=== PATIENT | male | born 1945 | race Caucasian/White ===

== ENCOUNTER 2017-11-03 10:17 | Day surgery (SDC) | payer OTHER ==
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
--- NOTE | 2017-11-02 22:05 | PDHPUP ---
History & Physical Update H&P update statement: This history and physical update is based on an assessment of the patient which was completed after admission or registration (within 24 hours), but prior to the surgery/procedure. H&P update: H&P reviewed & patient examined, no change in patient's condition since H&P completed
[~2017-11-03 10:17] MED LIST: ACETAMINOPHEN 500 MG TAB PO ONE; CLINDAMYCIN 900 MG/DEXTROSE 50 ML IV ONE; PREGABALIN 150 MG CAP PO ONE; ROPIVACAINE 0.2% 80 MG, EPINEPHrine 0.2 MG, KETOROLAC TROMETHAMINE 30 MG, morphINE 10 M... IU ONE; TRANEXAMIC ACID 3,000 MG in NS (SYRINGE) 50 ML IRR ONE
[2017-11-03] MEDS ORDERED: LR 1,000 ML IV ONE (10:32)
[2017-11-03] MEDS ORDERED: LIDOCAINE 1% 2 ML INJ ID PRN (10:32)
[2017-11-03] MEDS ORDERED: CLINDAMYCIN 900 MG/DEXTROSE/50 ML BAG IV ONE (10:48)
[2017-11-03] MEDS ORDERED: ACETAMINOPHEN 500 MG TAB ONE (10:49)
[2017-11-03] MEDS ORDERED: PREGABALIN 150 MG CAP ONE (10:50)
[2017-11-03] MEDS ORDERED: BUPIVACAINE/EPI 0.5% 30 ML SDV ONE (11:54)
[2017-11-03] MEDS ORDERED: POLYMYXIN B SULFATE 500,000 UNIT/10 ML SYR IRR ONE (11:54)
[2017-11-03] MEDS ORDERED: BACITRACIN 50,000 UNITS/10 ML SYR IRR ONE (11:55)
--- NOTE | 2017-11-03 12:28 | PDANEPAE ---
ANE History of Present Illness 72 year old male for ORIF of previously surgically repaired clavicle (removal of hardware + ORIF). ANE Past Medical History - Cardiovascular History Hx Hypertension: No Hx Arrhythmias: Yes Hx Chest Pain: No Hx Coronary Artery / Peripheral Vascular Disease: No Hx CHF / Valvular Disease: No Hx Palpitations: No Cardiovascular History Comment: Atrial Fibrillation - Pulmonary History Hx COPD: No Hx Asthma/Reactive Airway Disease: No Hx Recent Upper Respiratory Infection: Yes Hx Oxygen in Use at Home: No Hx Sleep Apnea: No Sleep Apnea Screening Result - Last Documented: Positive Pulmonary History Comment: URI 09/2017 TREATED WITH ANTIBIOTICS AND TAMIFLU. EXERCISE INDUCED ASTHMA. NO USE OF INHALER OVER PAST 5 YEARS. PNEUMONIA AND SEPSIS 2012 - Neurologic History Hx Cerebrovascular Accident: No Hx Seizures: No Hx Dementia: No - Endocrine History Hx Diabetes: No Hypothyroid: No Hyperthyroid: No Obesity: no - Renal History Hx Renal Disorders: Yes Renal History Comment: BPH - Liver History Hx Hepatic Disorders: No - Neurological & Psychiatric Hx Hx Neurological and Psychiatric Disorders: No - Cancer History Hx Cancer: No - Congenital Disorder History Hx Congenital Disorders: No - GI History Hx Gastrointestinal Disorders: No - Other Health History Other Health History: GLAUCOMA - Chronic Pain History Chronic Pain: No - Surgical History Prior Surgeries: ORIF LT COLLAR BONE 2014. APPY. TONSILLECTOMY. LT HAND ORIF WITH POST REMVL. LT THUMB TENDON REPAIR ANE Review of Systems Review of systems is: negative Review of Systems: - Exercise capacity Exercise capacity: >=4 METS METS (RN): 5 METS ANE Patient History - Allergies Allergies/Adverse Reactions: Penicillins Allergy (Unknown, Verified 01/14/16 15:12) - Home Medications Home medications: home medication list seen and reviewed Home Medications: Aspirin [Aspirin 81mg] 81 mg PO DAILY 10/18/11 [Last Taken 10/29/17] Cholecalciferol (Vitamin D3) [Vitamin D3] 1,000 unit PO DAILY 10/18/11 [Last Taken 10/29/17] Multivitamins W-Iron [One Daily Multivitamin] 1 each PO DAILY 10/18/11 [Last Taken 10/29/17] RX: Ascorbic Acid [Vitamin C 500 mg (*)] 500 mg PO DAILY 10/18/11 [Last Taken ] SIMVASTATIN [Zocor] 40 mg PO HS 10/18/11 [Last Taken 11/02/17 19:00] Ubidecarenone [Co Q-10] 100 mg PO DAILY 10/18/11 [Last Taken 10/29/17] Latanoprost 0.005% HS 01/14/16 [Last Taken 11/02/17 23:00] Flecainide Acetate BID 04/11/16 [Last Taken 11/03/17 08:00] ACETAMINOPHEN PRN 10/29/17 [Last Taken 11/02/17 22:00] - NPO status NPO Status: no food or drink >8 hours NPO Since - Liquids (Date): 11/03/17 NPO Since - Liquids (Time): 09:00 NPO Since - Solids (Date): 11/02/17 NPO Since - Solids (Time): 22:00 - Anes Hx Anes Hx: no prior problems - Smoking Hx Smoking Status: Never smoked Marijuana use: No - Family Anes Hx Family Anes Hx: neg - N/A ANE Labs/Vital Signs - Vital Signs Vital Signs: reviewed preoperatively; see RN documention for details Blood Pressure: 172/64 Heart Rate: 50 Respiratory Rate: 16 O2 Sat (%): 98 Height: 167.64 cm Weight: 63.503 kg ANE Physical Exam - Airway Neck exam: FROM Mallampati Score: Class 2 Mouth exam: normal dental/mouth exam - Pulmonary Pulmonary: no respiratory distress - Cardiovascular Cardiovascular: regular rate and rhythym ANE Anesthesia Plan Anesthesia Plan: general endotracheal anesthesia Total IV Anesthesia: No
[2017-11-03] MEDS ORDERED: MIDAZOLAM 2 MG/2 ML VIAL ONE (12:30)
[2017-11-03] MEDS ORDERED: MIDAZOLAM 2 MG/2 ML VIAL IVP ONE (12:31)
[2017-11-03] MEDS ORDERED: TRANEXAMIC ACID 3,000 MG/50 ML BAG IRR ONE (12:32)
[2017-11-03] MEDS ORDERED: ROCURONIUM 50 MG/5 ML VIAL ONE (12:37)
[2017-11-03] MEDS ORDERED: LIDOCAINE 2% 5 ML SDV ONE (12:37)
[2017-11-03] MEDS ORDERED: PROPOFOL 200 MG/20 ML VIAL ONE (12:37)
[2017-11-03] MEDS ORDERED: fentaNYL 100 MCG/2 ML INJ ONE ×2 (12:37→14:55)
[2017-11-03] MEDS ORDERED: PHENYLEPHRINE HCL 100 MCG/ML SYR ONE (13:01)
[2017-11-03] MEDS ORDERED: CALCIUM CHLORIDE 1 GM/10 ML INJ ONE (13:03)
[2017-11-03] MEDS ORDERED: THROMBIN (BOVINE) 5,000 UNIT VIAL TP ONE (13:03)
[2017-11-03] MEDS ORDERED: ONDANSETRON 4 MG/2 ML VIAL ONE (13:06)
[2017-11-03] MEDS ORDERED: DEXAMETHASONE 4 MG/ML VIAL ONE (13:06)
[2017-11-03] MEDS ORDERED: HYDROGEN PEROXIDE 236 ML BOTTLE TP ONE (13:59)
[2017-11-03] MEDS ORDERED: HYDROCODONE/APAP 5/325 TAB PO PRN ×2 (14:09→14:38)
[2017-11-03] MEDS ORDERED: ACETAMINOPHEN 325 MG TAB PO PRN (14:09)
--- NOTE | 2017-11-03 14:09 | POSTOPPROG ---
Post Op Note Date of Operation: 11/03/17 Surgeon: Estrella Quesada Campaign Marketing Specialist: coltrain Anesthesia: GET(General Endotracheal) Pre-op Diagnosis: l clavicle fx Procedure: l clavicle jamie with orif Inf/Abcess present in the surg proc area at time of surgery?: No Depth: Deep Incisional (Fascial) EBL: 50-100
[2017-11-03] MEDS ORDERED: LABETALOL HCL 5 MG/ML 20 ML MDV IVP PRN (14:38)
[2017-11-03] MEDS ORDERED: PHENYLEPHRINE HCL 100 MCG/ML SYR IVP PRN (14:38)
[2017-11-03] MEDS ORDERED: HYDROmorphONE/DILAUDID 1 MG/ML INJ IVP PRN (14:38)
[2017-11-03] MEDS ORDERED: LR 500 ML IV PRN (14:38)
[2017-11-03] MEDS ORDERED: NALOXONE HCL 0.4 MG/ML INJ IVP PRN (14:38)
[2017-11-03] MEDS ORDERED: fentaNYL 100 MCG/2 ML INJ IVP PRN (14:38)
[2017-11-03 14:39] VITALS: TEMP 97.3
[2017-11-03] MEDS ORDERED: HYDROmorphONE/DILAUDID 2 MG/ML INJ IVP PRN (14:44)
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
[2017-11-03] MEDS ORDERED: LABETALOL HCL 5 MG/ML 20 ML MDV ONE (14:55)
[2017-11-03] MEDS ORDERED: HYDROCODONE/APAP 5/325 TAB ONE (15:04)
--- NOTE | 2017-11-03 15:07 | POSTANESTH ---
Post Anesthetic Evaluation Cardiovascular Status: Normal, Stable, Similar to Pre-Op Cond Respiratory Status: Normal, Stable, Similar to Pre-op Cond. Level of Consciousness/Mental Status: Can Participate in Eval, Alert and Oriented Pain Control: Adequate, Prn Tx Ordered Nausea/Vomiting Control: Adequate, Prn Tx Ordered Complications Possibly Related to Anesthesia: None Noted
[2017-11-03 16:17] VITALS: BP 144/69; PULSE 62; RESP 14; O2SAT 94
== END 2017-11-03 16:43 | disposition home or self-care (01) ==
LOC: FSGY 10:17
PROVIDERS: ATTEND Orthopaedic Surgery
PROC: 0PPB04Z Removal of Internal Fixation Device from Left Clavicle, Open Approach (ICD-10-PCS; principal; 2017-11-03 12:00)
PROC: 0PSB04Z Reposition Left Clavicle with Internal Fixation Device, Open Approach (ICD-10-PCS; principal; 2017-11-03 12:00)
DX: S42.022A Displaced fracture of shaft of left clavicle, initial encounter for closed fracture (principal); V18.0XXA Pedal cycle driver injured in noncollision transport accident in nontraffic accident, initial encounter; Y93.55 Activity, bike riding; Y99.8 Other external cause status; I48.91 Unspecified atrial fibrillation; E78.5 Hyperlipidemia, unspecified; N40.1 Benign prostatic hyperplasia with lower urinary tract symptoms; R97.20 Elevated prostate specific antigen [PSA]; N13.8 Other obstructive and reflux uropathy; N40.2 Nodular prostate without lower urinary tract symptoms; Z87.81 Personal history of (healed) traumatic fracture; Z88.0 Allergy status to penicillin
CPT/HCPCS: C1713; J0171; J1100; J1885; J2250; J2270; J2370; J2405; J2704; J2795; J3010